=== PATIENT | male | born 1990 | race Caucasian/White ===

== ENCOUNTER 2023-05-07 16:44 | Emergency (ER) | payer MEDICAID, SELFPAY ==
--- NOTE | ~2023-05-07 | XR_ITS ---
EXAM: XR ankle LT 2V, XR foot LT 2V DATE: 05/07/2023 17:50 HISTORY: Left ankle pain post fall downstairs . COMPARISON: None available. FINDINGS: Normal mineralization. No fracture or dislocation. No lytic or blastic lesion. Joint space s are maintained. No erosion or periosteal change. Soft tissues within normal limits. IMPRESSION: No acute osseous finding in the left ankle or foot. Reviewed, dictated and finalized at location K. IMPRESSION: No acute osseous finding in the left ankle or foot.
[2023-05-07 16:47] VITALS: BP 149/91; PULSE 96; RESP 18; TEMP 36.6; O2SAT 100
--- NOTE | 2023-05-07 18:22 | ED.GENADULT ---
HPI - General Adult General Chief complaint: Extremity Injury, Lower Stated complaint: left leg Time Seen by Provider: 05/07/23 16:49 History of Present Illness HPI narrative: Jordan Faust is a 32 y/o male who presents today with reports of falling down the stairs about 2 days ago, he was found unconscious at the bottom of the stairs his g/f could not wake him and called EMS who then took him to [facility] and he says he had imaging done and was d/c home, He state that after he woke up from the fall at the hospital he noticed that he had some decrease sensation to his left lower extremity. He states over the past couple days he thought this would just get better but it hasn't. He denies any neck / back pain denies pain to hips and no numbness/ to his upper extremities or to his right lower extremity Related Data Allergies Allergy/AdvReac Type Severity Reaction Status Date / Time No Known Allergies Allergy Verified 05/07/23 16:45 Review of Systems Review of Systems: CONSTITUTIONAL: Denies fever, chills, or sweats. EYES: Denies visual changes, redness, or discharge. ENT: Denies rhinorrhea, congestion, sore throat, or otalgia. CARDIOVASCULAR: Denies chest pain, palpitations, or edema. RESPIRATORY: Denies cough or dyspnea. GASTROINTESTINAL: Denies abdominal pain, nausea, vomiting, or diarrhea. GENITOURINARY: Denies dysuria or hematuria. SKIN: Denies rash or itching. MUSCULOSKELETAL: Denies back pain, joint pain, or myalgia. NEUROLOGIC: Denies headache, reports decrease sensation/ numbness to his left lower extremity PSYCHIATRIC: Denies anxiety or depression. Exam Narrative: GENERAL: Well-appearing, well-nourished, and in no acute distress. HEAD: Normocephalic, atraumatic. EYES: PERRLA and EOMI. ENT: Nares clear, no rhinorrhea or epistaxis. Mucous membranes moist. Oropharynx without tonsillar hypertrophy exudate or other lesions. NECK: Supple. No adenopathy or masses. No carotid bruits or JVD CHEST: Clear to auscultation. No respiratory distress. No wheezes rales or rhonchi HEART: Regular rate and rhythm. No murmur heard. Normal peripheral pulses. ABDOMEN: Soft, nontender, nondistended, normal active bowel sounds. EXTREMITIES: decrease ROM to left ankle/ no obvious trauma/deformity noted. SKIN: Warm, dry, no rash. NEURO: No focal deficits. Alert and oriented x3. PSYCH: Normal mood and affect. Course Vital Signs Vital signs: Vital Signs Temperature 36.6 C 05/07/23 16:47 Pulse Rate 96 05/07/23 16:47 Respiratory Rate 18 05/07/23 16:47 Blood Pressure 149/91 H 05/07/23 16:47 Pulse Oximetry 100 05/07/23 16:47 Oxygen Delivery Room Air 05/07/23 16:47 Temperature 36.6 C 05/07/23 16:47 Pulse Rate 96 05/07/23 16:47 Respiratory Rate 18 05/07/23 16:47 Blood Pressure 149/91 H 05/07/23 16:47 Pulse Oximetry 100 05/07/23 16:47 Oxygen Delivery Room Air 05/07/23 16:47 Medical Decision Making MDM Narrative Medical decision making narrative: Patient had what sounds like a pretty major fall with LOC - he went to an OSH ER and states he had a lot of imaging completed/ d/c home No obvious head/facial trauma NO cervical / thoracic/ lumbar spinal tenderness with palpation No pain to his hips On exam with pin point assessment he states decrease sensation to the posterior mid calf down to his ankle and the dorsum aspect of his foot and his second - fifth toes with some decrease sensations, the bottom of his foot sensation is intact except for the lateral aspect he states having some decrease sensation Collaborated with Dr. Mace who recommends consulting with Neurology Dr. Baez, waiting for a return of call After reviewing the dermatome map, it seems his symptoms may follow the dermatome map of S1/L5. Talked with Dr. Baez who recommends pt get an MRI of his lumbar sacral as an out pt that he does not need to be admitted for this Encouraged pt to follow up with [facility]
== END 2023-05-07 20:12 | disposition home or self-care (01) ==
PROVIDERS: Emergency Provider Nurse Practitioner Family; PCP Family Medicine
DX: R20.8 Other disturbances of skin sensation (principal)
CPT/HCPCS: 73600; 73620; 99283